=== PATIENT | female | born 1960 | race Caucasian/White ===

== ENCOUNTER 2025-06-02 13:00 | Inpatient (IN) | payer BC ==
[2025-06-02] MEDS ORDERED: cefTRIAXone (ROCEPHIN) 2 GM VIAL ONE (14:01)
[2025-06-02 14:25] LABS: #Basophils 0.04 10x3/uL (0.0-0.2); #Eosinophils 0.15 10x3/uL (0.0-0.5); #Monocytes 0.69 10x3/uL (0.0-1.1); #Neutrophils 7.43 10x3/uL (1.5-8.4); %Basophils 0.4 % (0.0-2.0); %Eosinophils 1.6 % (0.0-6.0); %Lymphocytes 8.3 % (18.0-47.0); %Monocytes 7.5 % (0.0-10.0); %Neutrophils 81.4 % (40.0-75.0); Hematocrit 40.7 % (34.9-44.5); Hemoglobin 13.1 g/dL (12.0-15.5); Mean Corpuscular Hemoglobin 29.6 pg (27.0-33.0); Mean Corpuscular Volume 91.9 fL (81.6-98.3); Platelet Count 150 10x3/uL (150-450); Red Blood Cell (RBC) Count 4.43 10x6/uL (3.90-5.03); White Blood Cell (WBC) Count 9.14 10x3/uL (3.5-10.5)
[2025-06-02 14:47] LABS: ALT (SGPT) 28 U/L (Less than 34); AST (SGOT) 26 U/L (11-34); Albumin 3.0 g/dL (3.1-4.5); Alkaline Phosphatase 67 U/L (40-110); Anion Gap 14 mmol/L (10-20); BUN (Urea Nitrogen) 22 mg/dL (9.8-20.1); Bilirubin, Total 1.0 mg/dL (0.3-1.2); Calc. Creatinine Clearance 0 mL/min (70-130); Calcium 9.1 mg/dL (7.8-10.44); Carbon Dioxide 23 mmol/L (23-31); Chloride 105 mmol/L (98-107); Globulin 4.6 g/dL (2.4-3.5); Glucose 136 mg/dL (80-115); Potassium 4.1 mmol/L (3.5-5.1); Sodium 138 mmol/L (136-145)
[2025-06-02] MEDS ORDERED: Glucagon 1 MG/ML KIT IM PRN (15:57)
[2025-06-02] MEDS ORDERED: Senokot S 8.6-50 MG TAB PO PRN (15:57)
[2025-06-02] MEDS ORDERED: Dextrose 50% Abboject 50 ML SYRINGE SLOW IVP PRN (15:57)
[2025-06-02] MEDS ORDERED: Melatonin 3 MG TAB PO PRN (15:57)
[2025-06-02] MEDS: Ketorolac Tromethamine 30 MG (1 mL) VIAL IVP PRN (17:48)
[2025-06-02] MEDS: VANCOMYCIN 2 GRAM/400 ML BAG 2 GM in Premix 1 BAG IVPB SCH (17:54)
[2025-06-02] MEDS: Famotidine 20 MG TAB PO SCH (21:03)
[2025-06-02] MEDS: Aspirin Chewable 81 MG TAB PO SCH (21:28)
[2025-06-03 04:30] LABS: #Basophils 0.05 10x3/uL (0.0-0.2); #Eosinophils 0.20 10x3/uL (0.0-0.5); #Monocytes 0.59 10x3/uL (0.0-1.1); #Neutrophils 5.33 10x3/uL (1.5-8.4); %Basophils 0.7 % (0.0-2.0); %Eosinophils 2.8 % (0.0-6.0); %Lymphocytes 13.3 % (18.0-47.0); %Monocytes 8.2 % (0.0-10.0); %Neutrophils 74.0 % (40.0-75.0); Hematocrit 37.7 % (34.9-44.5); Hemoglobin 11.9 g/dL (12.0-15.5); Mean Corpuscular Hemoglobin 28.9 pg (27.0-33.0); Mean Corpuscular Volume 91.5 fL (81.6-98.3); Platelet Count 138 10x3/uL (150-450); Red Blood Cell (RBC) Count 4.12 10x6/uL (3.90-5.03); White Blood Cell (WBC) Count 7.20 10x3/uL (3.5-10.5)
[2025-06-03 04:45] LABS: Anion Gap 14 mmol/L (10-20); BUN (Urea Nitrogen) 24 mg/dL (9.8-20.1); Calc. Creatinine Clearance 181 mL/min (70-130); Calcium 8.4 mg/dL (7.8-10.44); Carbon Dioxide 20 mmol/L (23-31); Chloride 108 mmol/L (98-107); Glucose 179 mg/dL (80-115); Potassium 3.6 mmol/L (3.5-5.1); Sodium 138 mmol/L (136-145)
[2025-06-03] MEDS: Levothyroxine 150 MCG TAB PO SCH (05:29)
[2025-06-03 10:01] LABS: Vancomycin, Trough 9.6 ug/mL
[2025-06-03] MEDS: Vancomycin 1 GM in Sodium Chloride 0.9% 250 ML 250 ML IVPB SCH ×2 (11:37→20:35)
[2025-06-03] MEDS: HYDROcodone/Acetaminophen 7.5/325 mg Tablet PO PRN (12:05)
[2025-06-03] MEDS: Enoxaparin 40 MG (0.4 mL) SYRINGE SC SCH (12:08)
[2025-06-03 12:29] VITALS: BMI 75.9
[2025-06-03] MEDS: cefTRIAXone\\ROCEPHIN 2 GM in Sodium Chloride 0.9% 100 ML IVPB SCH (13:41)
[2025-06-03] MEDS: Aspirin Chewable 81 MG TAB PO SCH (20:36)
[2025-06-03] MEDS: Losartan 50 MG TAB PO SCH (20:37)
[2025-06-04 06:27] LABS: Calc. Creatinine Clearance 176.0 mL/min (70-130)
[2025-06-04 06:31] LABS: Vancomycin, Random 16.8 ug/mL (See Comment)
[2025-06-04 09:38] LABS: ALT (SGPT) 35 U/L (Less than 34); AST (SGOT) 52 U/L (11-34); Albumin 2.4 g/dL (3.1-4.5); Alkaline Phosphatase 52 U/L (40-110); Anion Gap 16 mmol/L (10-20); BUN (Urea Nitrogen) 23 mg/dL (9.8-20.1); Bilirubin, Total 0.4 mg/dL (0.3-1.2); Calc. Creatinine Clearance 191 mL/min (70-130); Calcium 8.3 mg/dL (7.8-10.44); Carbon Dioxide 20 mmol/L (23-31); Chloride 110 mmol/L (98-107); Globulin 4.1 g/dL (2.4-3.5); Glucose 129 mg/dL (80-115); Potassium 4.1 mmol/L (3.5-5.1); Sodium 142 mmol/L (136-145)
[2025-06-04 09:53] LABS: Platelet Count 160 10x3/uL (150-450)
[2025-06-04 09:55] LABS: #Basophils 0.04 10x3/uL (0.0-0.2); #Eosinophils 0.25 10x3/uL (0.0-0.5); #Monocytes 0.48 10x3/uL (0.0-1.1); #Neutrophils 3.19 10x3/uL (1.5-8.4); %Basophils 0.8 % (0.0-2.0); %Eosinophils 5.1 % (0.0-6.0); %Lymphocytes 17.9 % (18.0-47.0); %Monocytes 9.8 % (0.0-10.0); %Neutrophils 65.0 % (40.0-75.0); Hematocrit 38.2 % (34.9-44.5); Hemoglobin 12.0 g/dL (12.0-15.5); Mean Corpuscular Hemoglobin 29.4 pg (27.0-33.0); Mean Corpuscular Volume 93.6 fL (81.6-98.3); Red Blood Cell (RBC) Count 4.08 10x6/uL (3.90-5.03); White Blood Cell (WBC) Count 4.91 10x3/uL (3.5-10.5)
[2025-06-04] MEDS: Cefepime 2 MG in Syringe 0 ML IVPB SCH (17:23)
[2025-06-04] MEDS: Acetaminophen 325 MG TAB PO PRN (17:51)
[2025-06-04] MEDS: Enoxaparin 40 MG (0.4 mL) SYRINGE SC SCH (21:00)
[2025-06-04] MEDS: HYDROcodone/Acetaminophen 10/325 mg Tablet PO PRN (21:00)
[2025-06-05 06:17] LABS: #Basophils 0.07 10x3/uL (0.0-0.2); #Eosinophils 0.24 10x3/uL (0.0-0.5); #Monocytes 0.49 10x3/uL (0.0-1.1); #Neutrophils 2.79 10x3/uL (1.5-8.4); %Basophils 1.4 % (0.0-2.0); %Eosinophils 4.8 % (0.0-6.0); %Lymphocytes 23.2 % (18.0-47.0); %Monocytes 9.9 % (0.0-10.0); %Neutrophils 56.5 % (40.0-75.0); Hematocrit 38.4 % (34.9-44.5); Hemoglobin 12.0 g/dL (12.0-15.5); Mean Corpuscular Hemoglobin 28.8 pg (27.0-33.0); Mean Corpuscular Volume 92.3 fL (81.6-98.3); Platelet Count 183 10x3/uL (150-450); Red Blood Cell (RBC) Count 4.16 10x6/uL (3.90-5.03); White Blood Cell (WBC) Count 4.95 10x3/uL (3.5-10.5)
[2025-06-05 06:30] LABS: ALT (SGPT) 42 U/L (Less than 34); AST (SGOT) 66 U/L (11-34); Albumin 2.4 g/dL (3.1-4.5); Alkaline Phosphatase 50 U/L (40-110); Anion Gap 17 mmol/L (10-20); BUN (Urea Nitrogen) 19 mg/dL (9.8-20.1); Bilirubin, Total 0.3 mg/dL (0.3-1.2); Calc. Creatinine Clearance 189 mL/min (70-130); Calcium 8.6 mg/dL (7.8-10.44); Carbon Dioxide 19 mmol/L (23-31); Chloride 111 mmol/L (98-107); Globulin 4.0 g/dL (2.4-3.5); Glucose 129 mg/dL (80-115); Potassium 4.1 mmol/L (3.5-5.1); Sodium 143 mmol/L (136-145)
[2025-06-05] MEDS: HYDROcodone/Acetaminophen 10/325 mg Tablet PO PRN (11:29)
[2025-06-05] MEDS: Ketorolac Tromethamine 30 MG (1 mL) VIAL IVP PRN (12:55)
[2025-06-05] MEDS: Lidocaine 2% 6 ML (Jelly) SYR TOP PRN (12:55)
[2025-06-06 06:07] LABS: Vancomycin, Random 23.8 ug/mL (See Comment)
[2025-06-06 06:11] LABS: ALT (SGPT) 69 U/L (Less than 34); AST (SGOT) 99 U/L (11-34); Albumin 2.7 g/dL (3.1-4.5); Alkaline Phosphatase 53 U/L (40-110); Anion Gap 17 mmol/L (10-20); BUN (Urea Nitrogen) 21 mg/dL (9.8-20.1); Bilirubin, Total 0.4 mg/dL (0.3-1.2); Calc. Creatinine Clearance 163 mL/min (70-130); Calcium 8.5 mg/dL (7.8-10.44); Carbon Dioxide 18 mmol/L (23-31); Chloride 109 mmol/L (98-107); Globulin 4.0 g/dL (2.4-3.5); Glucose 131 mg/dL (80-115); Potassium 4.3 mmol/L (3.5-5.1); Sodium 140 mmol/L (136-145)
[2025-06-06 07:31] LABS: Hematocrit 42.0 % (34.9-44.5); Hemoglobin 13.3 g/dL (12.0-15.5); Mean Corpuscular Hemoglobin 28.9 pg (27.0-33.0); Mean Corpuscular Volume 91.1 fL (81.6-98.3); Platelet Count 208 10x3/uL (150-450); Red Blood Cell (RBC) Count 4.61 10x6/uL (3.90-5.03); White Blood Cell (WBC) Count 6.51 10x3/uL (3.5-10.5)
[2025-06-06 08:49] LABS: Microcytosis SLIGHT = 6-15 cells (100X) (0-5/hpf); RBC Morphology Within Normal Limits
[2025-06-06 08:51] LABS: MDiff Complete? YES; Platelet Adequacy Comment Appears Adequate
[2025-06-06] MEDS ORDERED: Vancomycin HCl 750 MG in Sodium Chloride 0.9% 250 ML 250 ML IVPB SCH (21:00)
[2025-06-06] MEDS: Linezolid 600 MG in Premix 1 BAG IVPB SCH (21:15)
[2025-06-07 06:17] LABS: ALT (SGPT) 66 U/L (Less than 34); AST (SGOT) 94 U/L (11-34); Albumin 2.7 g/dL (3.1-4.5); Alkaline Phosphatase 55 U/L (40-110); Anion Gap 17 mmol/L (10-20); BUN (Urea Nitrogen) 21 mg/dL (9.8-20.1); Bilirubin, Total 0.3 mg/dL (0.3-1.2); Calc. Creatinine Clearance 183 mL/min (70-130); Calcium 8.9 mg/dL (7.8-10.44); Carbon Dioxide 20 mmol/L (23-31); Chloride 109 mmol/L (98-107); Globulin 4.3 g/dL (2.4-3.5); Glucose 138 mg/dL (80-115); Potassium 4.5 mmol/L (3.5-5.1); Sodium 141 mmol/L (136-145)
[2025-06-07 06:25] LABS: Hematocrit 38.9 % (34.9-44.5); Hemoglobin 12.6 g/dL (12.0-15.5); Mean Corpuscular Hemoglobin 29.6 pg (27.0-33.0); Mean Corpuscular Volume 91.5 fL (81.6-98.3); Platelet Count 183 10x3/uL (150-450); Red Blood Cell (RBC) Count 4.25 10x6/uL (3.90-5.03); White Blood Cell (WBC) Count 5.30 10x3/uL (3.5-10.5)
[2025-06-07 06:46] LABS: Anisocytosis SLIGHT = 6-15 cells (100X) (0-5/hpf); MDiff Complete? YES; Macrocytosis SLIGHT = 6-15 cells (100X) (0-5/hpf); Platelet Adequacy Comment Appears Adequate
[2025-06-07] MEDS: Linezolid 600 MG TAB PO SCH (20:20)
[2025-06-08 12:39] VITALS: BP 109/75; TEMP 97.7
== END 2025-06-08 16:44 | disposition home or self-care (01) | DRG 603 ==
LOC: CSHERS 13:00 → CSHERHOLD 15:26 → CSHTELE 17:09 → OBSVTOIN 06-03 11:55
PROVIDERS: ADMIT Internal Medicine; ATTEND Internal Medicine
DX: L03.116 Cellulitis of left lower limb (principal); Z68.45 Body mass index [BMI] 70 or greater, adult; I10 Essential (primary) hypertension; E11.9 Type 2 diabetes mellitus without complications; Z90.710 Acquired absence of both cervix and uterus; E66.01 Morbid (severe) obesity due to excess calories; Z88.1 Allergy status to other antibiotic agents; Z88.2 Allergy status to sulfonamides; L02.416 Cutaneous abscess of left lower limb; Z79.899 Other long term (current) drug therapy; Z79.4 Long term (current) use of insulin; Z79.82 Long term (current) use of aspirin; Z91.041 Radiographic dye allergy status
CPT/HCPCS: 36415; 36416; 80048; 80053; 80202; 82565; 83036; 83605; 85025; 87040; 87070; 87077; 87081; 87186; 87205; 93005; 96365; 96375; 96376; 97139; G0378; J0692; J0696; J1815; J1885; J2020; J3373; J3375; J7050